=== PATIENT | female | born 1955 | race Two or more races ===

== ENCOUNTER 2016-05-19 08:20 | Day surgery (SDC) | payer BC ==
[~2016-05-19] VITALS: Ht 142.2 cm; Wt 71.2 kg
[~2016-05-19 08:20] MED LIST: ACET500T68 PO; ATORVASTATIN CA80 MG PO; CELE200C PO; EZET10TA3 PO; FAMO20TA5 PO; FENTANYL PF 100 MCG/2 ML VIAL. IV PRN; HYDR-2666 PO; HYDROMORPHONE 2 MG/ML VIAL. IV PRN; IV RINGERS,LACTATED 1000ML 1,000 ML IV SCH; LEVO100T5 PO; LEVO88TA4 PO; LIDOCAINE 1% 1 ML SYRINGE. ID PRN; MAGN250T5 PO; METO-269 PO; MODA200T2 PO; MORPHINE SULFATE 2 MG/ML DISP.SYRIN. IV PRN; ONDANSETRON PF 4 MG/2 ML VIAL. IV PRN; PARO20TA3 PO; PARO30TA3 PO; PROCHLORPERAZINE 10 MG/2 ML VIAL. IV PRN; ROPI2TAB3 PO; SUMA100T4 PO
[2016-05-19 09:23] LABS: BILIRUBIN,URINE NEGATIVE (NEG); GLUCOSE,URINE NEGATIVE (NEG); NITRITE,URINE NEGATIVE (NEG); PH,URINE 7.5; PROTEIN,URINE 30 mg/dL (NEG-TRACE); UROBILINOGEN,URINE 0.2 mg/dL (0.2 mg/dL)
[2016-05-19 09:43] LABS: BACTERIA,URINE 0 /HPF (0-FEW); RBC,URINE >40 /HPF (0-2); WBC,URINE 0 /HPF (0-4)
[2016-05-19] MEDS ORDERED: FENTANYL PF 100 MCG/2 ML VIAL. ONE (10:02)
[2016-05-19] MEDS ORDERED: DEXAMETHASONE SOD PHOS 20 MG/5 ML VIAL. ONE (10:02)
[2016-05-19] MEDS ORDERED: ONDANSETRON PF 4 MG/2 ML VIAL. ONE (10:02)
[2016-05-19] MEDS ORDERED: LIDOCAINE 1% PF 5 ML VIAL. ONE (10:02)
[2016-05-19] MEDS ORDERED: PROPOFOL 20 ML IV ONE (10:02)
[2016-05-19] MEDS ORDERED: IOHEXOL 300 MG/ML 50 ML VIAL. ONE (10:10)
[2016-05-19] MEDS ORDERED: EPHEDRINE PF IN SALINE 50 MG/5 ML DISP.SYRIN. IV ONE (10:36)
[2016-05-19] MEDS ORDERED: SEVOFLURANE 31 TO 60 MINUTES. IH ONE (10:51)
--- NOTE | 2016-05-19 11:08 | PDOC ---
BRIEF OPERATIVE NOTE Date: May 19, 2016 Pre-Op Diagnosis proximal right ureteral calculus Post-Op Diagnosis same Procedure Performed Cystoscopy right retrograde, placement of right ureteral stent (4.8 by 26cm) Surgeon Tara Anesthesia Type: General Specimens Obtained None Findings large proximal right ureteral calculus Complications None Additional Remarks tolerated well XAVIER MORILLO DO May 19, 2016 11:08
--- NOTE | 2016-05-19 11:09 | DISCH ---
DISCHARGE INSTRUCTIONS Condition on Discharge Condition on Discharge: Stable Activity After Discharge Activity Instructions for Disc: Activity as tolerated Driving Instructions after Dis: Do not drive today Diet after Discharge Diet after Discharge: Regular Wound Incision Care Other wound/incision instructi: Expect to see blood in urine with stent Contacting the DRJeffrey after DC Call your doctor for: Concerns you may have Follow-Up Follow up with: Dr Morillo's office will schedule shock wave lithotripsy XAVIER MORILLO DO May 19, 2016 11:09
[2016-05-19] MEDS ORDERED: CIPR500T94 PO (11:18)
[2016-05-19 12:11] VITALS: BP 120/60
--- NOTE | 2016-05-19 12:16 | OP ---
DATE OF SURGERY: 05/19/2016 PREOPERATIVE DIAGNOSIS: Large proximal right ureteral calculus. POSTOPERATIVE DIAGNOSIS: Proximal large right ureteral calculus. PROCEDURE: Cystoscopy, right retrograde pyelogram, placement of right ureteral stent (4.8 Syrian x 26 cm). SURGEON: Xavier Morillo DO. ANESTHESIA: General. INDICATIONS AND JUDGMENT: This is a 60-year-old female with a history of a large calculus in the proximal right ureter with high-grade obstruction. It was felt that she should undergo cystoscopy, stent placement to relieve the obstruction to the right kidney and in preparation for outpatient shockwave lithotripsy. This was explained to the patient, she appeared to understand and was agreeable. DESCRIPTION OF PROCEDURE: The patient was preloaded with IV Levaquin, taken to the operating room and placed on the operating room table in supine position, given a general anesthetic and then placed in a dorsolithotomy position using Prem stirrups since we do not have a cystoscopy table. A C-arm was then moved into position. Rigid cystoscopy was performed. The patient has a moderate size cystocele. No evidence of tumor or stones within the bladder. I had to place a finger inside the vaginal vault and lift up to bring the right ureteral orifice into vision due to the cystocele. I cannulated the right ureteral orifice. Contrast was injected and this identified a large calculus in the proximal right ureter and right hydronephrosis. I then advanced a 0.035 Glidewire up the right ureteral orifice up the ureter, past the stone and into the right renal pelvis. Following that, a 4.8 Syrian x 26 cm double-J ureteral stent was advanced over the Glidewire under fluoroscopy up the right ureter past the stone and into the dilated renal pelvis. The positioning appeared to be satisfactory. Therefore, the wire was removed leaving the stent in place. The calculus was easily identified. It is large in nature. The instruments were removed. The patient tolerated the procedure well and was sent to recovery room in satisfactory condition. Plans will be to send her home from the recovery room with a prescription for Cipro antibiotics and hydrocodone 5 as needed for pain. She will be scheduled for outpatient shockwave lithotripsy. XAVIER MORILLO DO DR: ELEONORA/adan JOB#: [id number] / [id number]
== END 2016-05-19 12:29 | disposition home or self-care (01) ==
LOC: SURG 08:20
PROVIDERS: ATTEND Urology
DX: N20.1 Calculus of ureter (principal); E78.00 Pure hypercholesterolemia, unspecified; I10 Essential (primary) hypertension; K21.9 Gastro-esophageal reflux disease without esophagitis; M19.90 Unspecified osteoarthritis, unspecified site; F32.9 Major depressive disorder, single episode, unspecified; F41.9 Anxiety disorder, unspecified; Z90.49 Acquired absence of other specified parts of digestive tract; Z87.442 Personal history of urinary calculi; Z72.89 Other problems related to lifestyle
CPT/HCPCS: 74420; 81001; 87086; C1769; C2617; J1100; J1956; J2405; J2704; J3010; Q9967